=== PATIENT | female | born 1980 | race Caucasian/White ===

== ENCOUNTER 2017-12-24 22:28 | Emergency (ER) | payer BC ==
[2017-12-25] MEDS ORDERED: LIDOCAINE 1% INJ-PF (10 MG/ML) 30 ML SDV INJ ONE (00:32)
--- NOTE | 2017-12-25 00:59 | ER Document Report ---
HPI - HPI Pain Level: 4 Notes: Patient is a 37-year-old female no significant past medical history who presents to the ED complaining of a laceration to her right palm, right wrist, and a lifted toenail injury to her left great toe status post injury prior to arrival. Patient [place] in the area on vacation and was walking [place] from the beach when she tripped on the curb and landed palm out on the gravel and kicked the curb with her foot. Patient states that she does not have any pain otherwise to her toe. Patient states that she is still ambulatory without difficulties otherwise. Patient states that she is can still move her hand, but does have numbness to the first 3 digits anteriorly. Denies any drug allergies. Unknown last tetanus. Denies any headache, fever, head injury, neck pain, URI, sore throat, chest pain, palpitations, syncope, cough, shortness of breath, wheeze, dyspnea, abdominal pain, nausea/vomiting/diarrhea, urinary retention, dysuria, hematuria, loss of control of bowel or bladder, muscle paralysis/weakness, or rash. - ROS Systems Reviewed and Negative: Yes All other systems reviewed and negative Past Medical History - Social History Smoking Status: Never Smoker Family History: Reviewed & Not Pertinent Vertical Provider Document - CONSTITUTIONAL Agree With Documented VS: Yes Notes: PHYSICAL EXAMINATION: GENERAL: Well-appearing, well-nourished and in no acute distress. LUNGS: Breath sounds clear to auscultation bilaterally and equal. No wheezes rales or rhonchi. HEART: Regular rate and rhythm without murmurs, rubs, gallops. Musculoskeletal: Rt wrist/fingers: FROM to passive/active. Strength 5+/5, 4+/5 to flexion of the 2nd digit. Dec sensation noted to the median nerve distribution of the fingers. N/V intact distal. 2 Lacs noted, see below. Lt great toe: FROM. Strength 5+/5. Non-tender to palp of the bones. N/V intact distal. Extremities: No cyanosis, clubbing, or edema b/l. Peripheral pulses 2+. Capillary refill less than 3 seconds. NEUROLOGICAL: Normal speech, normal gait. see above for dec sensation. PSYCH: Normal mood, normal affect. SKIN: Rt wrist/palm: there is a 1cm superficial linear laceration to the anteromedial proximal palm. there is another 1cm linear laceration to the anterior wrist. No purulence. bleeding controlled. Lt great toe: Nail is sticking straight up at a 90 degree angle to the bed. Base is intact. - INFECTION CONTROL TRAVEL OUTSIDE OF THE [place] IN LAST 30 DAYS: No Course - Re-evaluation Re-evalutation: 12/25/17 01:[address] Gann and Dr. Shaikh. Dr. Shaikh would like an elective exploratory f/u next week. 12/25/17 02:13 Patient is an afebrile, well-hydrated, 37-year-old female who presents to the ED with 2 lacerations and a nail avulsion. Vitals are acceptable. PE is otherwise unremarkable for any obvious tendon/ligament rupture, fracture/ dislocation, retained foreign body. Patient did have decreased sensation over the median nerve distribution. X-ray unremarkable for any acute pathology. Wounds thoroughly irrigated and cleansed. Wound edges approximated appropriately utilizing 2 simple interrupted sutures for each laceration and 1 simple interrupted suture to pin the nail back down to the nailbed. Patient tolerated procedure well without any complications. Wound dressing was placed and wound instructions reviewed. Tetanus updated today. I will send her home with prophylactic antibiotic as well. First dose given in the ED. Call orthopedics Tuesday morning for further evaluation and management. Recheck with your PCM in 3-5 days otherwise. Return to the ED with any worsening/concerning symptoms otherwise as reviewed discharge. Patient is in agreement. - Vital Signs Vital signs: Temp Pulse Resp BP Pulse Ox 97.7 F 72 16 100/69 96 12/24/17 23:00 12/24/17 23:00 12/24/17 23:00 12/24/17 23:00 12/24/17 23:00 Procedures - Laceration/Wound Repair Right Wrist Time completed: 02:10 Wound length (cm): 1 Wound's Depth, Shape: Linear Laceration pre-procedure: Sterile PPE donned, Sterile drapes applied, Other - chlorhexadine Anesthetic type: 1% Lidocaine Volume Anesthetic (mLs): 4 Wound explored: Clean, No foreign body removed Irrigated w/ Saline (mLs): 60 Wound Debrided: none Wound Repaired With: Sutures Suture Size/Type: 5:0, Nylon Number of Sutures: 2 Layer Closure?: No Post-procedure wound care: Sterile dressing applied Post-procedure NV exam normal: Yes Complications: No Right Hand Time completed: 02:10 Wound length (cm): 1 Wound's Depth, Shape: Superficial, Linear Laceration pre-procedure: Sterile PPE donned, Sterile drapes applied, Other - chlorhexadine Anesthetic type: 1% Lidocaine Volume Anesthetic (mLs): 4 Wound explored: No foreign body removed, Contaminated - cleaned well Irrigated w/ Saline (mLs): 100 Wound Debrided: Minimal Wound Repaired With: Sutures Suture Size/Type: 4:0, Nylon Number of Sutures: 2 Post-procedure wound care: Sterile dressing applied Post-procedure NV exam normal: Yes Complications: No Left Great toe Time completed: 02:10 Wound length (cm): 0 - toenail sticking straight up, but connected at base Wound's Depth, Shape: Nail-avulsed Laceration pre-procedure: Sterile PPE donned, Sterile drapes applied, Other - chlorhexadine Anesthetic type: 1% Lidocaine Volume Anesthetic (mLs): 10 Wound explored: Clean, No foreign body removed Irrigated w/ Saline (mLs): 60 Wound Debrided: none Wound Repaired With: Sutures Suture Size/Type: 4:0, Nylon Number of Sutures: 1 Post-procedure wound care: Sterile dressing applied Post-procedure NV exam normal: Yes Complications: No - pinned the nail back to its bed Discharge - Discharge Clinical Impression: Laceration of wrist Qualifiers: Encounter type: initial encounter Laterality: right Qualified Code(s): S61.511A - Laceration without foreign body of right wrist, initial encounter Laceration of palm Qualifiers: Encounter type: initial encounter Laterality: right Qualified Code(s): S61.411A - Laceration without foreign body of right hand, initial encounter Injury of toenail of left foot Qualifiers: Encounter type: initial encounter Qualified Code(s): S99.922A - Unspecified injury of left foot, initial encounter Condition: Stable Disposition: HOME, SELF-CARE Instructions: Antibiotic Ointment Protection ([facility]), Laceration Care ([facility]), Prophylactic Antibiotic ([facility]), Soap Cleansing ([facility]), Tetanus Immunization Given ([facility]) Additional Instructions: Do not shower or bathe for 24 hours. After 24 hours you may shower but no submersion of the wound under water. Keep the original dressing on the wound for 24 hours unless the drainage soaks through. Change the dressing daily thereafter and keep the knots of the suture material clean from any dried discharge. You may leave the wound open to the air once there is no more discharge. Dr. Shaikh would like to evaluate you early next week. Monitor for any signs of worsening pain or redness, purulent drainage, streaks, and/or fever. Return to the ED if noticing any of the above symptoms or as needed. Take medications as directed. Your sutures will need to be removed in 10 days, but may be taken off early by Orthopedics at the wrist. There is concern about your median nerve and the laceration to the right anterior wrist due to the numbness in the 1st 3 digits anteriorly. Prescriptions: Cephalexin Monohydrate [Keflex 500 mg Capsule] 500 mg PO TID #15 capsule Referrals: NEHAL SHAIKH MD [ACTIVE STAFF] - 12/26/17
[2017-12-25] MEDS ORDERED: DIPH/PERTUSS(ACELL)/TETANUS VAC/PF 0.5 ML SYR (>=10YO) IM ONE (01:21)
--- NOTE | 2017-12-25 01:27 | RADIOLOGY REPORT (SQ) ---
EXAM DESCRIPTION: XR WRIST 3 OR MORE VIEWS RIGHT CLINICAL HISTORY: 37 years Female, injury/laceration s/p fall COMPARISON: None. Findings: Bones, joints, and soft tissues of the XR WRIST 3 VIEWS RIGHT appear intact. IMPRESSION: No acute findings.
[2017-12-25] MEDS ORDERED: ONDANSETRON 4 MG TAB.RAPDIS ONE ×2 (01:44→01:48)
[2017-12-25] MEDS ORDERED: ONDANSETRON 4 MG TAB.RAPDIS PO ONE ×2 (02:11→02:15)
[2017-12-25] MEDS ORDERED: CEPHALEXIN 500 MG CAPSULE PO ONE (02:12)
[2017-12-25 03:11] VITALS: BP 102/66
== END 2017-12-25 03:09 | disposition home or self-care (01) ==
LOC: ER 22:28
DX: S61.511A Laceration without foreign body of right wrist, initial encounter (principal); S61.411A Laceration without foreign body of right hand, initial encounter; S91.202A Unspecified open wound of left great toe with damage to nail, initial encounter; W10.1XXA Fall (on)(from) sidewalk curb, initial encounter; Y93.01 Activity, walking, marching and hiking; R20.0 Anesthesia of skin; Z23 Encounter for immunization
CPT/HCPCS: 99283; 90471; 73110; 90715; 12001; J3490